=== PATIENT | female | born 1965 | race Caucasian/White ===

== ENCOUNTER 2018-02-21 10:15 | Emergency (ER) | payer OTHER, MEDICAID ==
[2018-02-21] MEDS: ONDANSETRON 4 MG INJ IV (11:06)
[2018-02-21] MEDS: morphine 4 MG/ML VIAL IV (11:06)
== END 2018-02-21 13:40 | disposition home or self-care (01) ==
LOC: E/R 10:15
DX: S42.011A Anterior displaced fracture of sternal end of right clavicle, initial encounter for closed fracture (principal); R40.2142 Coma scale, eyes open, spontaneous, at arrival to emergency department; R40.2362 Coma scale, best motor response, obeys commands, at arrival to emergency department; R40.2252 Coma scale, best verbal response, oriented, at arrival to emergency department; W01.0XXA Fall on same level from slipping, tripping and stumbling without subsequent striking against object, initial encounter; Y92.9 Unspecified place or not applicable
CPT/HCPCS: 73030; 73030-RT; 73110-RT; 73200; 96374; 96375; 99285-25